=== PATIENT | male | born 1970 | race Caucasian/White ===

== ENCOUNTER → 2024-03-27 16:34 | Outpatient (REF) | payer OTHER, SELFPAY | LOC: RAD 16:34 | PROVIDERS: ATTENDING PHYSICIAN Family Medicine | DX: M54.16 Radiculopathy, lumbar region (principal) | CPT/HCPCS: 72110 ==

== ENCOUNTER → 2024-06-09 08:15 | Outpatient (REF) | payer OTHER, SELFPAY | LOC: HWRAD 08:15 | PROVIDERS: ATTENDING PHYSICIAN Family Medicine | DX: M79.605 Pain in left leg (principal) | CPT/HCPCS: 93971 ==

== ENCOUNTER → 2024-06-23 07:07 | Outpatient (REF) | payer OTHER, SELFPAY | LOC: MRI 3T 07:07 | PROVIDERS: ATTENDING PHYSICIAN Family Medicine | DX: M54.16 Radiculopathy, lumbar region (principal) | CPT/HCPCS: 72148 ==

== ENCOUNTER 2025-06-19 06:12 | Day surgery (SDC) | payer OTHER, SELFPAY | END 2025-06-19 10:08 | disposition home or self-care (01) | LOC: GI 06:12 | PROVIDERS: ATTENDING PHYSICIAN Internal Medicine Gastroenterology | DX: Z12.11 Encounter for screening for malignant neoplasm of colon (principal); Z83.719 Family history of colon polyps, unspecified; K64.8 Other hemorrhoids | CPT/HCPCS: G0105 ==